=== PATIENT | male | born 1950 | race Two or more races ===

== ENCOUNTER 2022-10-25 08:53 | Outpatient (CLI) | payer OTHER | END 2022-10-25 08:56 | disposition home or self-care (01) | LOC: SONOGRAMA 08:53 | PROVIDERS: ATTEND Pathology Anatomic Pathology & Clinical Pathology | DX: D34 Benign neoplasm of thyroid gland (principal); E04.9 Nontoxic goiter, unspecified; D44.0 Neoplasm of uncertain behavior of thyroid gland ==